=== PATIENT | male | born 1970 | race Caucasian/White ===

== ENCOUNTER 2020-03-17 11:59 | Outpatient (CLI) | payer BC, SELFPAY ==
[2020-03-18 12:24] LABS: SARS-CoV-2 RNA PCR Negative
== END 2020-03-17 12:00 | disposition home or self-care (01) ==
LOC: CHSLAB 12:04
PROVIDERS: PCP Family Medicine; Visit Provider Family Medicine
DX: R19.7 Diarrhea, unspecified (principal)
CPT/HCPCS: 87635; C9803; U0003

== ENCOUNTER 2020-06-01 17:48 | Emergency (ER) | payer BC, SELFPAY ==
[2020-06-01 17:55] VITALS: BP 160/103; PULSE 78; RESP 18; TEMP 36.6; O2SAT 100
[2020-06-01] MEDS: cefTRIAXone 1 GM VIAL IM (18:18)
[2020-06-01 18:23] LABS: Basophils Absolute Auto 0.04 K/mm3 (0.00-0.10); Basophils Percent Auto 0.5 % (0.0-1.0); Eosinophils Absolute Auto 0.61 K/mm3 (0.02-0.50); Eosinophils Percent Auto 7.4 % (1.0-6.0); Hematocrit 42.4 % (40.0-54.0); Hemoglobin 14.3 g/dL (14.0-18.0); Immature Granulocyte Absolute 0.02 K/mm3 (0.00-0.00); Immature Granulocyte Percent A 0.2 % (0.0-0.0); Lymphocytes Absolute Auto 1.57 K/mm3 (1.10-4.50); Lymphocytes Percent Auto 19.1 % (18.0-42.0); Mean Corpuscular HGB Conc 33.7 g/dL (32.0-36.0); Mean Corpuscular Hemoglobin 32.6 pg (27.0-31.0); Mean Corpuscular Volume 96.8 fL (78.0-102.0); Mean Platelet Volume 9.4 fl (8.7-11.0); Monocytes Absolute Auto 1.09 K/mm3 (0.10-0.90); Monocytes Percent Auto 13.2 % (2.0-11.0); Neutrophils Absolute Auto 4.9 K/mm3 (1.7-7.2); Neutrophils Percent Auto 59.6 % (50.0-70.0); Platelet Count Result 251 K/mm3 (150-420); Red Blood Count 4.38 M/mm3 (4.70-6.10); Red Cell Distribution Width 13.1 % (11.6-14.4); White Blood Count 8.2 K/mm3 (4.8-10.8)
[2020-06-01 18:39] LABS: Alanine Aminotransferase 55 U/L (16-63); Alkaline Phosphatase 63 U/L (46-116); Anion Gap 9 mmol/L (8-16); Aspartate Amino Transferase 31 U/L (15-37); Bilirubin,Total 0.4 mg/dL (0.00-1.00); Blood Urea Nitrogen 12 mg/dL (7-18); Carbon Dioxide 29 mmol/L (21-32); Chloride 100 mmol/L (98-108); D Dimer 0.61 mg/L (0.19-0.50); Estimated Glomerular Filt Rate > 60; Glucose 94 mg/dL (70-99); Osmolality Calculated 285 mOsm/kg (285-295); Potassium 3.7 mmol/L (3.5-5.1); Sodium 138 mmol/L (136-145); Total Protein 7.1 g/dL (6.4-8.2)
--- NOTE | 2020-06-01 18:54 | ED.SKABFB ---
HPI - Skin/Abscess/Foreign Bdy General Chief complaint: Skin/Abscess/Foreign Body Stated complaint: possible spider bite Time Seen by Provider: 06/01/20 18:15 Source: patient Mode of arrival: ambulatory Limitations: no limitations History of Present Illness HPI narrative: Patient comes in complaining of a sore left knee. This has been sore for the past 4 days and evidently started as a small area of cellulitis about the size of a quarter. He ignored this, and now he comes in with what appears to be a cellulitis involving the entire left knee. He denies fever and chills, or drainage from what appears to be a tiny puncture site. Discomfort is mild, dull, and ongoing, not severe enough to cause him to seek relief. Severity: mild Severity scale (1-10): 2 Quality: burning and aching Pain Consistency: intermittent Relieving factors: rest Exacerbating factors: movement Related Data Allergies Allergy/AdvReac Type Severity Reaction Status Date / Time No Known Allergies Allergy Verified 04/17/19 08:37 Review of Systems Constitutional: Constitutional: Reports no additional constitutional complaints Eyes: Eyes: Reports no additional eye complaints ENT: Reports system reviewed and no additional complaints, except as documented Cardiovascular: Cardiovascular: Reports no additional cardiovascular complaints Respiratory: Respiratory: Reports no additional respiratory complaints Gastrointestinal: Gastrointestinal: Reports no additional gastrointestinal complaints Genitourinary: Genitourinary: Reports no additional male genitourinary complaints Musculoskeletal: Musculoskeletal: Reports no additional musculoskeletal complaints Integumentary/Breasts: Skin/Breast: Reports system reviewed and no additional complaints, except as docu Neurologic: Reports system reviewed and no additional complaints, except as documented Psychiatric: Psychiatric: Reports no additional psychiatric complaints Endocrine: Endocrine: Reports no additional endocrine complaints Hematologic/Lymphatic: Hematologic/Lymphatic: Reports no additional hematologic/lymphatic complaints Allergic/Immunologic: Allergic/Immunologic: Reports no additional allergic/immunologic complaints [facility] Past Medical History Medical History History of fracture of hand Hypercholesterolemia Hyperlipidemia Hypertension Surgical History Surgical History History of vasectomy Family History Family History Father Hypertension Mother Hypertension COPD (chronic obstructive pulmonary disease) Unknown Diabetes mellitus COPD (chronic obstructive pulmonary disease) Alzheimer's dementia Social History Social History Smoking packs per day: 1.5 Smoking cigarettes per day: 30.0 Years smoked: 13 Smoking pack-years: 19.50 Smoking status: Current every day smoker Alcohol intake: current Drinks per week: 7 Substance use: unknown 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[employer] Const: General: no acute distress Orientation/consciousness: patient oriented x3 HENMT: Head: normal to inspection Ears: external ears normal and TM's normal bilaterally General nose exam: Normal external nose present Face and sinus: normal facial exam Mouth: Yes Normal oral and palatal mucosa present Throat: posterior oropharynx normal Eyes: Conjunctivae: conjunctivae normal Neck: Neck: normal visual inspection Chest: Chest palpation & inspection: normal inspection of the chest Resp: Effort & Inspection: normal respiratory effort Auscultation: clear to auscultation bilaterally Cardio: Rate: regular rate Rhythm: regular rhythm GI: Auscultation: normal bowel sounds Skin: General skin exam: normal color Other: celulitis to right knee, involvi
[2020-06-01 19:05] VITALS: BP 142/103
== END 2020-06-01 19:10 | disposition left against medical advice (07) ==
PROVIDERS: Emergency Provider Emergency Medicine; PCP Family Medicine
DX: L03.115 Cellulitis of right lower limb (principal)
CPT/HCPCS: 36415; 80053; 85025; 85380; 96372; 99283; A9270; J0696

== ENCOUNTER 2020-06-02 18:17 | Outpatient (CLI) | payer BC, SELFPAY ==
[2020-06-02] MEDS: cefTRIAXone 1 GM VIAL IM (18:58)
== END 2020-06-02 18:18 | disposition home or self-care (01) ==
LOC: CHSTREATRM 18:19
PROVIDERS: Visit Provider Emergency Medicine
DX: L03.90 Cellulitis, unspecified (principal)
CPT/HCPCS: 96372; J0696

== ENCOUNTER 2022-12-27 09:10 | Outpatient (CLI) | payer OTHER, SELFPAY ==
--- NOTE | ~2022-12-27 | XR_ITS ---
EXAMINATION: XR wrist RT min 3V DATE: 12/27/2022 09:28 INDICATION: Right wrist pain. TECHNIQUE: 4 views of right wrist were obtained. COMPARISON: None. FINDINGS: Bone alignment is normal. No fracture. There is mild osteoarthritis of first carpometacarpa l joint. IMPRESSION: 1. Mild osteoarthritis of first carpometacarpal joint. Reviewed, dictated and finalized at location A.
--- NOTE | ~2022-12-27 | XR_ITS ---
EXAMINATION: XR finger 1st RT min 2V DATE: 12/27/2022 09:28 INDICATION: Right thumb pain. TECHNIQUE: 3 views of right thumb were obtained. COMPARISON: None. FINDINGS: Bone alignment is normal. No fracture. There is mild osteoarthritis of first carpometacarpa l joint. IMPRESSION: 1. Mild osteoarthritis of first carpometacarpal joint. Reviewed, dictated and finalized at location A.
== END 2022-12-27 09:11 | disposition home or self-care (01) ==
LOC: CHSIMG 09:13
PROVIDERS: PCP Family Medicine; Visit Provider Family Medicine
DX: M79.644 Pain in right finger(s) (principal); M19.031 Primary osteoarthritis, right wrist; M19.041 Primary osteoarthritis, right hand
CPT/HCPCS: 73110; 73140

== ENCOUNTER 2023-08-09 14:30 | Observation (INO) | payer MEDICAID, SELFPAY ==
[2023-08-09] VITALS (12 sets, daily range): BP systolic 129–160; BP diastolic 74–91; PULSE 84–102; RESP 16–23; TEMP 36.4–36.7; O2SAT 97–100; BMI 25.0
--- NOTE | ~2023-08-09 | CT_ITS ---
EXAMINATION: CT brain wo con DATE: 08/09/2023 15:38 INDICATION: Head trauma TECHNIQUE: Computed tomography (CT) of the head was performed without intravenous contrast. Sagittal and coronal reconstructions were performed. The mA was adjusted according to patient size. Iterative reconstruction technique was employed. The dose-length product was 756.67 mGy-cm. COMPARISON: Brain MR dated 01/03/2015 FINDINGS: No fracture. No acute intracranial hemorrhage, acute infarction or abnormal extra axial fluid collect ion. Ventricles are normal and symmetric. No mass/mass effect. Diffuse retention cyst in the left max illary sinus. The orbits and mastoid air cells are normal. IMPRESSION: 1. Normal brain. No fracture or acute intracranial process. Reviewed, dictated and finalized at location A.
--- NOTE | ~2023-08-09 | CT_ITS ---
EXAMINATION: CT cervical spine wo con DATE: 08/09/2023 15:38 INDICATION: Neck trauma TECHNIQUE: Computed tomography (CT) of the cervical spine was performed without intravenous contrast. Automated exposure control and iterative reconstruction technique were employed. The dose-length pro duct was 486.77 mGy-cm. COMPARISON: None FINDINGS: Slight reversal of the normal lordosis in the lower cervical spine. One-2 mm anterolisthesis C4 on C5 . Vertebral body heights are normal. No acute fracture. Moderate disc height loss at C5-C6 and C6-C7. Mild disc height loss at C3-C4, C4-C5 and C7-T1. Atherosclerotic calcifications at the bilateral car otid bulbs. Cervical soft tissues are otherwise unremarkable. Mild emphysema and pleural parenchymal scarring at the bilateral apices of the lungs. The following disc levels are specifically discussed: C2-C3: There is minimal bilateral uncovertebral joint osteoarthritis. There is mild right and moderat e left facet joint osteoarthritis. There is no neural foraminal stenosis. There is no central canal s tenosis. C3-C4: Disc is mildly bulging. There is mild bilateral uncovertebral joint osteoarthritis. There is m ild right and moderate left facet joint osteoarthritis. There is mild left neural foraminal stenosis. There is mild central canal stenosis. C4-C5: Left-sided predominant posterior disc osteophyte complex. There is moderate right and severe l eft uncovertebral joint osteoarthritis. There is mild right and severe left facet joint osteoarthriti s. There is moderate left and mild right neural foraminal stenosis. There is mild central canal steno sis. C5-C6: Posterior disc osteophyte complex. There is mild left and severe right uncovertebral joint ost eoarthritis. There is mild bilateral facet joint osteoarthritis. There is mild left and moderate righ t neural foraminal stenosis. There is mild central canal stenosis. C6-C7: Posterior disc osteophyte complex. There is severe left and moderate right uncovertebral joint osteoarthritis. There is mild bilateral facet joint osteoarthritis. There is mild right and moderate left neural foraminal stenosis. There is mild central canal stenosis. C7-T1: There is right and mild to moderate left uncovertebral joint osteoarthritis. There is mild lef t and severe right facet joint osteoarthritis. There is mild right and minimal left neural foraminal stenosis. There is no central canal stenosis. IMPRESSION: 1. Moderate cervical spondylosis. No acute osseous abnormality. Reviewed, dictated and finalized at location A.
--- NOTE | 2023-08-09 14:43 | ECG_ITS ---
SEE SCANNED COPY FOR CONFIRMED REPORT MTDD
--- NOTE | 2023-08-09 15:09 | ED.SEIZURE ---
HPI - Seizure General Chief Complaint: Seizure Stated Complaint: Seizure Time Seen by Provider: 08/09/23 14:36 History of Present Illness HPI Narrative: Patient is a 53-year-old male with history of daily alcohol use here today after seizure-like activity. Just prior to arrival patient was tiling a bathroom with his brother. He was bringing some tiles to his brother, started making a weird loud noise and then he brother witnessed him crash his head into a concrete wall and fall to the ground. He then witnessed patient have approximately 5 minutes of generalized tonic clonic movements followed by a couple minutes of confusion. Patient is having some amnesia to the event and to events earlier this morning. He denies any history of seizures, denies feeling any prodromal symptoms. Of note, patient does endorse he previously drank more than a 12-pack of beer daily but has recently started cutting back on alcohol. Patient states that a few weeks ago he tried to cut back on alcohol cut back to fast and was having significant shakes. He then increased his alcohol intake again and has been slowly decreasing his alcohol use. He has been drinking 6-8 beers daily, last drink was around 8 pm last night. He denies feeling withdrawal symptoms this morning however family at bedside who he was with do note he appeared to be a bit shaky and said he was not feeling well prior to seizure like activity. No drug use, no cardiac history. Currently complaining of some fatigue and a mild headache, does not feel like he is withdrawing from alcohol at this time. Related Data Allergies Allergy/AdvReac Type Severity Reaction Status Date / Time No Known Allergies Allergy Verified 04/17/19 08:37 Review of Systems Review of Systems: All systems reviewed & are unremarkable except as noted in HPI and below PMFSH Past Medical History Medical History (Updated 08/09/23 @ 20:32 by Ting Jenkins MD) History of fracture of hand Hypercholesterolemia Hyperlipidemia Hypertension Surgical History Surgical History History of vasectomy Family History Family History Father Hypertension Mother Hypertension COPD (chronic obstructive pulmonary disease) Unknown Diabetes mellitus COPD (chronic obstructive pulmonary disease) Alzheimer's dementia Social History Social History Smoking packs per day: 1.5 Smoking cigarettes per day: 30.0 Years smoked: 13 Smoking pack-years: 19.50 Smoking status: Current every day smoker Alcohol intake: current Drinks per week: 7 Substance use: unknown Occupation/Education: occupation 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 HEAD: Normocephalic, small abrasion with 2 cm hematoma present to the left gnosticist, bleeding controlled. EYES: PERRLA and EOMI. ENT: Nares clear. Mucous membranes moist. Faint tongue fasciculations present. NECK: Supple. No c-spine tenderness. CHEST: Clear to auscultation. No respiratory distress. HEART: Regular rate and rhythm. Normal peripheral pulses. ABDOMEN: Soft, nontender, nondistended. EXTREMITIES: Normal range of motion. No edema. SKIN: Warm, dry, no rash. NEURO: No focal deficits. No facial droop, no upper or lower extremity drift. No sensory deficits. Alert and oriented x3. Mild hand tremor. PSYCH: Normal mood and affect. Course Course Emergency Course: Chart review performed. Patient here from home for evaluation of possible seizure and ground level fall with head injury. Triage vitals show mild tachycardia, otherwise within normal limits. No prior visits for seizures. Patient seen evaluated, nontoxic appearing. He is here after likely person seizure like activity. Unsure of cause, could be related to his decrease i
[2023-08-09] MEDS: TETANUS,DIPHTHERIA,AC PERTUSSIS ADULT (0.5 ML) BOOSTRIX IM (15:41)
[2023-08-09] MEDS: LORazepam (*CRX) 1 MG TABLET PO (15:41)
[2023-08-09 15:43] LABS: Basophils Absolute Auto 0.1 K/mm3 (0.0-0.1); Basophils Percent Auto 0.5 % (0.2-1.2); Eosinophils Percent Auto 0.3 % (0-4.4); Hematocrit 40.9 % (42.0-52.0); Hemoglobin 14.2 g/dL (14.0-18.0); Immature Granulocyte Absolute 0.04 K/mm3 (0.00-0.031); Immature Granulocyte Percent A 0.4 % (0-0.5); Lymphocytes Absolute Auto 0.95 K/mm3 (0.9-3.2); Lymphocytes Percent Auto 9.9 % (18.3-44.2); Mean Corpuscular HGB Conc 34.7 g/dl (32-36); Mean Corpuscular Volume 97.8 fl (80-100); Mean Platelet Volume 9.9 fl (7.4-10.4); Monocytes Absolute Auto 0.9 K/mm3 (0.1-0.6); Monocytes Percent Auto 9.5 % (2.6-8.5); Neutrophils Absolute Auto 7.6 K/mm3 (1.3-6.7); Neutrophils Percent Auto 79.4 % (45.5-73.1); Platelet Count Result 156 k/mm3 (150-375); Red Blood Count 4.18 M/mm3 (4.6-6.20); Red Cell Distribution Width 14.2 % (11.5-14.5); White Blood Count 9.6 K/mm3 (4.5-10.0)
[2023-08-09 15:50] LABS: Alanine Aminotransferase 244 U/L (6-50); Albumin Level 4.8 g/dL (3.5-5.1); Alkaline Phosphatase 67 U/L (38-126); Anion Gap 11 mmol/L (4-12); Aspartate Amino Transferase 281 U/L (17-59); Bilirubin,Total 0.8 mg/dL (0.2-1.3); Blood Urea Nitrogen 10 mg/dL (9-20); Calcium 9.5 mg/dL (8.4-10.2); Carbon Dioxide 21 mmol/L (22-30); Chloride 104 mmol/L (98-107); Creatine Kinase 217 U/L (55-170); Estimated CRCL calculation 124 ml/min; Estimated Glomerular Filt Rate > 60; Glucose 137 mg/dL (65-110); Magnesium 1.9 mg/dL (1.6-2.3); Potassium 4.3 mmol/L (3.4-5.0); Sodium 136 mmol/L (137-145)
[2023-08-09 15:54] LABS: Ethanol < 10 mg/dL (<10)
[2023-08-09 16:01] LABS: Troponin I < 0.012 ng/mL (0.000-0.034)
[2023-08-09] MEDS: chlordiazePOXIDE (*CRX) 25 MG CAPSULE 50 MG (18:16)
--- NOTE | 2023-08-09 20:40 | ADMGEN ---
This patient, Nic Beth, was admitted to IMU Room 214-01. Patient/family oriented to hospital policies and general routines including ID bracelet, bed and alarms, visiting hours, pain management, procedures, bathroom and other care routines, personal items, smoking policy, room service/diet, and visiting hours. Information on how to activate the Rapid Response Team has been discussed. Patient/Family are encouraged to report perceived risks to care and to ask questions if they do not understand what they are told or what they should do.
[2023-08-09 21:04] LABS: Glucose Point of Care 87 mg/dl (65-105)
--- NOTE | 2023-08-09 21:15 | PM.IMHP ---
H&P: HPI History of Present Illness Date/Time: 08/09/23 21:15 Chief Complaint: Seizure-like activity, alcohol abuse Narrative: 53-year-old male with a past medical history of heavy alcohol use who presented to the ER after having witnessed seizure like activity while putting in a floor. The patient reports he has been drinking heavily for the last 4 years since he went through a divorce. He gradually was able to cut back from 30 beers a day in down to 15 beers a day. But has had various relapses back up to the larger amount of drinking. He reports that for the last few weeks he was able to cut back down to around 12 beers a day and more recently has worked down to the just fiber 6 beers a day. Yesterday he only had 2 or 3 beers in his last alcoholic beverage was at 8 p.m.. He has had several episodes of severe shaking with cutting back on his drinking and had had increased his drinking before decreasing it back down again. However he reported that today he did not feel as if he was all that tremulous. He denied any prodrome will symptoms feeling lightheaded, headache or vision changes. He did not have any loss of bowel or bladder control when he did sees. He was reportedly down for a couple of minutes. He stated that he was told that when he fell he knocked his head against the concrete wall. 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 He denied any loss of bowel or bladder control during his seizure. He also had not had anything to eat since the afternoon of the . He did eat a turkey sandwich after arriving in the IMU at which time he did have 1 loose stool. He states that he does get some loose stools occasionally due to drinking. This is the 1st time he has had diarrhea recently. Patient's blood pressures are moderately elevated with systolic blood pressures in the ER ranging in the 140s to 160 range. He reports that approximately 8 years ago he was on antihypertensives but they were stopped after she lost weight and perform some lifestyle changes. He reports the that he has went to his doctor couple of times in the last urine half to 2 years due to symptoms for fatigue and had a ?full workup? throughout low testosterone and thyroid issues. He still feels fatigued quite frequently. On exam he does have a crowded posterior oropharynx. He has never had a sleep study. He has lost 3 jobs in the last several years due to his alcohol use. 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 Several months before he got this most recent job when he went to apply for the other job he could not get it either because even though he had not drink alcohol in 28 hours his blood alcohol level was still elevated at 100. It is due to this disruptions in his life is that he has been making the effort to quit drinking Review of Systems Review of Systems: 12 systems were reviewed with pertinent positives and negatives per HPI. Except as documented in the HPI, all other systems were reviewed and are negative. [facility] Past Medical History Medical History (Updated 08/09/23 @ 22:22 by Dulce Sandoval DO) Alcohol use History of fracture of hand Hyperlipidemia Hypertension Surgical History Surgical History (Updated 08/09/23 @ 21:19 by Dulce Sandoval DO) History of incision and drainage Epidermal cyst History of lipoma Resected History of vasectomy Family History Family History Father Hypertension Mother Hypertension COPD (chronic obstructive pulmonary disease) Unknown Diabetes mellitus COPD (chronic obstructive pulmonary disease) Alzheimer's dementia Social History Social History (Updated 08/10/23 @ 06:13 by Rosaile Andrew
--- NOTE | 2023-08-09 23:05 | PCRCNOTE ---
Pt stated that he does not wear/have a home CPAP unit.
[2023-08-09 23:45] LABS: Glucose Point of Care 129 mg/dl (65-105)
[2023-08-10] VITALS (9 sets, daily range): BP systolic 122–139; BP diastolic 78–84; PULSE 70–107; RESP 16–18; TEMP 36.4–36.6; O2SAT 97–100
[2023-08-10] MEDS: chlordiazePOXIDE (*CRX) 25 MG CAPSULE 50 MG PO ×3 (00:12→12:30)
[2023-08-10 07:05] LABS: Hematocrit 42.4 % (42.0-52.0); Hemoglobin 14.5 g/dL (14.0-18.0); Mean Corpuscular HGB Conc 34.2 g/dl (32-36); Mean Corpuscular Hemoglobin 33.6 pg (26-34); Mean Corpuscular Volume 98.4 fl (80-100); Mean Platelet Volume 10.4 fl (7.4-10.4); Platelet Count Result 160 k/mm3 (150-375); Red Blood Count 4.31 M/mm3 (4.6-6.20); Red Cell Distribution Width 14.2 % (11.5-14.5); White Blood Count 8.7 K/mm3 (4.5-10.0)
[2023-08-10 07:07] LABS: Alanine Aminotransferase 209 U/L (6-50); Albumin Level 4.2 g/dL (3.5-5.1); Alkaline Phosphatase 53 U/L (38-126); Anion Gap 6 mmol/L (4-12); Aspartate Amino Transferase 179 U/L (17-59); Bilirubin,Total 1.3 mg/dL (0.2-1.3); Blood Urea Nitrogen 11 mg/dL (9-20); Calcium 9.1 mg/dL (8.4-10.2); Carbon Dioxide 24 mmol/L (22-30); Chloride 102 mmol/L (98-107); Estimated CRCL calculation 117 ml/min; Estimated Glomerular Filt Rate > 60; Glucose 89 mg/dL (65-110); Potassium 3.6 mmol/L (3.4-5.0); Sodium 132 mmol/L (137-145)
[2023-08-10 08:21] LABS: Amphetamine Screen Urine Negative (Negative); Benzodiazepines Screen Urine Positive (Negative); Cannabinoid Screen Urine Positive (Negative); Cocaine Screen Urine Negative (Negative); Methadone Screen Urine Negative (Negative); Opiate Screen Urine Negative (Negative); Phencyclidine Screen Urine Negative (Negative)
[2023-08-10] MEDS: FOLIC ACID 1 MG TABLET PO (08:38)
[2023-08-10] MEDS: lisinopriL 20 MG TABLET PO (08:38)
[2023-08-10] MEDS: THIAMINE HCL 100 MG TABLET PO (08:38)
[2023-08-10] MEDS: ENOXAPARIN 40 MG/0.4 ML SYRINGE SUB-Q (08:38)
[2023-08-10 08:57] LABS: Barbiturate Screen Urine Negative (Negative)
--- NOTE | 2023-08-10 09:57 | PM.IMPN ---
Progress Note: A&P Assessment and Plan (1) Alcohol withdrawal seizure: Qualifiers: Complication of substance-induced condition: uncomplicated Qualified Code(s): F10.930 - Alcohol use, unspecified with withdrawal, uncomplicated; R56.9 - Unspecified convulsions Code(s): F10.939 - Alcohol use, unspecified with withdrawal, unspecified; R56.9 - Unspecified convulsions Status: Acute (2) Witnessed seizure-like activity: Code(s): R56.9 - Unspecified convulsions Status: Acute (3) Alcohol use disorder: Code(s): F10.90 - Alcohol use, unspecified, uncomplicated Status: Acute (4) Smoker: Code(s): F17.200 - Nicotine dependence, unspecified, uncomplicated Status: Acute (5) Hypertension: Qualifiers: Hypertension type: primary hypertension Qualified Code(s): I10 - Essential (primary) hypertension Code(s): I10 - Essential (primary) hypertension Status: Acute Assessment and Plan: lisinopril Plan Patient has had a seizure due to alcohol withdrawal. Librium has been initiated and scheduled 50 mg q.6. The patient's CIWA score in the ER was 5 after Librium administration and will in the IMU CIWA score was down to 3. Will continue thiamin and will add folic acid supplementation. Will place patient has seizure precautions and monitor. Neuro checks q.4 hours with CIWA scores. Patient does have elevated transaminases likely due to chronic alcohol use. Will repeat CMP in a.m. and if LFTs are not improving with cessation of alcohol patient may benefit from right upper quadrant ultrasound inpatient versus outpatient. Subjective Date/time seen: 08/10/23 09:57 Interval history: 53-year-old male with a H heavy alcohol use who presented to the ER after having witnessed seizure like activity while putting in a floor.? The patient reports he has been drinking heavily for the last 4 years since he went through a divorce.? He gradually was able to cut back from 30 beers a day in down to 15 beers a day.? But has had various relapses back up to the larger amount of drinking.? He reports that for the last few weeks he was able to cut back down to around 12 beers a day and more recently has worked down to the just fiber 6 beers a day.? Yesterday he only had 2 or 3 beers in his last alcoholic beverage was at 8 p.m..? He has had several episodes of severe shaking with cutting back on his drinking and had had increased his drinking before decreasing it back down again.? However he reported that today he did not feel as if he was all that tremulous.? He denied any prodrome will symptoms feeling lightheaded, headache or vision changes.? He did not have any loss of bowel or bladder control when he did sees.? He was reportedly down for a couple of minutes.? He stated that he was told that when he fell he knocked his head against the concrete wall.? 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 He denied any loss of bowel or bladder control during his seizure.? He also had not had anything to eat since the afternoon of the .? He did eat a turkey sandwich after arriving in the IMU at which time he did have 1 loose stool.? He states that he does get some loose stools occasionally due to drinking.? This is the 1st time he has had diarrhea recently. He has lost 3 jobs in the last several years due to his alcohol use.? In June she had a forklift accident and was found to have a blood alcohol level and breathalyzer of 50 which although below the legal limit is too high to be operating heavy machinery and he lost his job.? Several months before he got this most recent job when he went to apply for the other job he could not get it either because even though he had not drink alcohol in 28 hours his blood alcohol level was still elevated at 100.? It is due to this disruptions in his life is that he has been conor
--- NOTE | 2023-08-10 11:13 | WPDNEURCNPN ---
Assessment and Plan Assessment and plan (1) Alcohol withdrawal seizure: Qualifiers: Complication of substance-induced condition: uncomplicated Qualified Code(s): F10.930 - Alcohol use, unspecified with withdrawal, uncomplicated; R56.9 - Unspecified convulsions Code(s): F10.939 - Alcohol use, unspecified with withdrawal, unspecified; R56.9 - Unspecified convulsions Status: Acute (2) Alcohol use disorder: Code(s): F10.90 - Alcohol use, unspecified, uncomplicated Status: Acute (3) Smoker: Code(s): F17.200 - Nicotine dependence, unspecified, uncomplicated Status: Acute Plan MRI of the brain and EEG will be desirable. Patient has been treated to for alcohol withdrawal with Librium other supportive measures. Liver enzymes elevated. Serum magnesium level was normal. He is being advised with a catalytic case operator regarding alcohol withdrawal programs. She has had a single spell the setting if not necessarily be to start him on anticonvulsants. I shall be glad to discuss this after evaluate the results of investigations. Initial CT scan of the brain performed without contrast did not show any significant abnormalities. Consult date: 08/10/23 HPI: Nic Beth is a 53 year old male with history of alcohol in for last 4 years has had a divorce. He has been trying to cut down the drinking nevertheless he was the lying along with his brother who was present at the time of this interview. His mother saw that his suddenly went into a state of jerking of the body and complete loss of consciousness. He was on the floor and hit the left eyebrow against some hard object and not he has a bruise. He was also trying to grab a chair with the right hand that he transfer the left hand and no matter how much his brother will try it will not come out of his hand. Spell lasted for few minutes and thereafter he apparently returned back to his baseline. He has been observed here and now able to converse and 2 seem to be trying to get around. However he felt dizzy and was trying to get to the bathroom. He denies any other pertinent symptoms. Review of Systems Review of Systems: All systems reviewed & are unremarkable except as noted in HPI and below [facility] Past Medical History Medical History (Updated 08/09/23 @ 22:22 by Dulce Sandoval DO) Alcohol use History of fracture of hand Hyperlipidemia Hypertension Surgical History Surgical History (Updated 08/09/23 @ 21:19 by Dulce Sandoval DO) History of incision and drainage Epidermal cyst History of lipoma Resected History of vasectomy Family History Family History Father Hypertension Mother Hypertension COPD (chronic obstructive pulmonary disease) Unknown Diabetes mellitus COPD (chronic obstructive pulmonary disease) Alzheimer's dementia Social History Social History (Updated 08/10/23 @ 06:13 by Dulce Sandoval DO) Social History: The patient is . He has 1 son who is 9 years old. He has drink alcohol heavily for many years but become more of a problem with alcohol abuse over the last 4 years since his divorce. He has smoked 1.5 packs of cigarettes per day since he was a preteen. He occasionally smokes marijuana. Code status: Full code Smoking packs per day: 1 Smoking cigarettes per day: 20.0 Years smoked: 40 Smoking pack-years: 40.00 Smoking status: Current every day smoker Alcohol intake: current Drinks per week: 24 Substance use: current Substance use type: marijuana Do You Feel Safe in your Home?: Yes Lack of Transportation: No Lack of Food: Sometimes True Current Housing: I Have Housing Concerned About Future Housing: No Difficulty Paying Gas/Electric Bills: No Difficulty Paying for Meds: No Currently Unemployed: YES Education: Associate Degree Difficulty w/ Childcare or Family Care: No Occupation/Educatio
[2023-08-10 11:22] LABS: Glucose Point of Care 110 mg/dl (65-105)
--- NOTE | 2023-08-10 14:12 | PM.DS ---
DS: Admitting Diagnosis Discharge Date 08/09 Admitting Diagnosis alcohol withdrawla DS: Discharge Diagnosis Discharge Diagnosis (1) Alcohol withdrawal seizure: Qualifiers: Complication of substance-induced condition: uncomplicated Qualified Code(s): F10.930 - Alcohol use, unspecified with withdrawal, uncomplicated; R56.9 - Unspecified convulsions Code(s): F10.939 - Alcohol use, unspecified with withdrawal, unspecified; R56.9 - Unspecified convulsions Status: Acute (2) Witnessed seizure-like activity: Code(s): R56.9 - Unspecified convulsions Status: Acute (3) Alcohol use disorder: Code(s): F10.90 - Alcohol use, unspecified, uncomplicated Status: Acute (4) Smoker: Code(s): F17.200 - Nicotine dependence, unspecified, uncomplicated Status: Acute (5) Hypertension: Qualifiers: Hypertension type: primary hypertension Qualified Code(s): I10 - Essential (primary) hypertension Code(s): I10 - Essential (primary) hypertension Status: Acute Assessment and Plan: lisinopril Plan Patient has had a seizure due to alcohol withdrawal. Librium has been initiated and scheduled 50 mg q.6. The patient's CIWA score in the ER was 5 after Librium administration and will in the IMU CIWA score was down to 3. Will continue thiamin and will add folic acid supplementation. Will place patient has seizure precautions and monitor. Neuro checks q.4 hours with CIWA scores. Patient does have elevated transaminases likely due to chronic alcohol use. Will repeat CMP in a.m. and if LFTs are not improving with cessation of alcohol patient may benefit from right upper quadrant ultrasound inpatient versus outpatient. DS: Summary Hospital Course Hospital Course: Seizure-like activity, alcohol abuse Narrative: 53-year-old male with a past medical history of heavy alcohol use who presented to the ER after having witnessed seizure like activity while putting in a floor.? The patient reports he has been drinking heavily for the last 4 years since he went through a divorce.? He gradually was able to cut back from 30 beers a day in down to 15 beers a day.? But has had various relapses back up to the larger amount of drinking.? He reports that for the last few weeks he was able to cut back down to around 12 beers a day and more recently has worked down to the just fiber 6 beers a day.? Yesterday he only had 2 or 3 beers in his last alcoholic beverage was at 8 p.m..? He has had several episodes of severe shaking with cutting back on his drinking and had had increased his drinking before decreasing it back down again.? However he reported that today he did not feel as if he was all that tremulous.? He denied any prodrome will symptoms feeling lightheaded, headache or vision changes.? He did not have any loss of bowel or bladder control when he did sees.? He was reportedly down for a couple of minutes.? He stated that he was told that when he fell he knocked his head against the concrete wall.? 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 He denied any loss of bowel or bladder control during his seizure.? He also had not had anything to eat since the afternoon of the .? He did eat a turkey sandwich after arriving in the IMU at which time he did have 1 loose stool.? He states that he does get some loose stools occasionally due to drinking.? This is the 1st time he has had diarrhea recently. Patient's blood pressures are moderately elevated with systolic blood pressures in the ER ranging in the 140s to 160 range.? He reports that approximately 8 years ago he was on antihypertensives but they were stopped after she lost weight and perform some lifestyle changes.? He reports the that he has went to his doctor couple of times in the last urine half to 2 years due to symptoms for fatigue and had a ?full workup? thr
--- NOTE | 2023-08-10 18:06 | WPDNEUROLOGY ---
Neurology EEG Report General Information Date of Study: 08/10/23 TEST electroencephalogram DIAGNOSIS possible alcohol withdrawal seizure CONDITION OF RECORDING Bed side EEG NUMBER 24-30 CLINICAL HISTORY Patient is 53 years old with history of new onset seizure disorder. He has history of alcohol drinking. EEG DESCRIPTION During wakefulness, the background activity consists of posterior down rhythm in alpha range at approximately 10-11 hertz with an amplitude of 15-30 microvolts. Superimposed low-amplitude beta activity is seen throughout the recording. During drowsiness attenuation of background activity was seen. Hyperventilation or photic asymmetry were not performed. IMPRESSION This is a normal EEG obtained during awake and drowsy states.
== END 2023-08-10 15:37 | disposition home or self-care (01) ==
LOC: ANHED 18:22 → ANHIMU 20:32
PROVIDERS: Internal Medicine; Admitting Provider Hospitalist; Emergency Provider Student in an Organized Health Care Education/Training Program; PCP Family Medicine; Visit Provider Hospitalist
DX: F10.930 Alcohol use, unspecified with withdrawal, uncomplicated (principal); R56.9 Unspecified convulsions; I10 Essential (primary) hypertension; E78.00 Pure hypercholesterolemia, unspecified; F17.210 Nicotine dependence, cigarettes, uncomplicated; Z23 Encounter for immunization
CPT/HCPCS: 36415; 70450; 72125; 80053; 80307; 82550; 82948; 83735; 84484; 85025; 85027; 90471; 90715; 93005; 95816; 96372; 99285; A9270; G0378; J1650

== ENCOUNTER 2023-09-01 12:43 | Outpatient (CLI) | payer MEDICAID, SELFPAY ==
--- NOTE | ~2023-09-01 | MR_ITS ---
EXAMINATION: MR brain/brain stem wo/w con DATE: 09/01/2023 13:41 INDICATION: Seizure. TECHNIQUE: Magnetic resonance imaging (MRI) of the brain and brainstem was performed without and with 17 mL MultiHance intravenous contrast. COMPARISON: Brain MRI 01/03/2015, head CT 08/09/2023 FINDINGS: There is no intracranial hemorrhage, acute infarction, or abnormal intracranial mass lesion . There are scattered areas of nonspecific increased T2-weighted signal intensity in the cerebral whi te matter, which is within normal limits for the patient's age. The ventricles are normal in size. Th ere is mild mucosal thickening in the paranasal sinuses. The mastoid air cells are normal. The orbits are normal. IMPRESSION: 1. Normal aging brain. Reviewed, dictated and finalized at location A. IMPRESSION: 1. Normal aging brain.
== END 2023-09-01 12:44 ==
PROVIDERS: PCP Family Medicine; Visit Provider Physician Assistant
DX: R56.9 Unspecified convulsions (principal)
CPT/HCPCS: 70553; A9577